=== PATIENT | male | born 1990 | race Caucasian/White ===

== ENCOUNTER 2020-01-21 18:32 | Emergency (ER) | payer SELFPAY ==
[2020-01-21 19:52] VITALS: BP 128/85; PULSE 65; RESP 17; TEMP 36.8; O2SAT 95; BMI 25.8
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
== END 2020-01-21 21:57 | disposition home or self-care (01) ==
PROVIDERS: Emergency Provider Nurse Practitioner Family
DX: S29.012A Strain of muscle and tendon of back wall of thorax, initial encounter (principal); V49.40XA Driver injured in collision with unspecified motor vehicles in traffic accident, initial encounter
CPT/HCPCS: 12345; 70450; 72072; 72100; 72125; 73030; 99281; 99283

== ENCOUNTER 2021-05-12 21:34 | Emergency (ER) | payer SELFPAY ==
[2021-05-12 21:57] VITALS: BP 140/91; PULSE 76; RESP 22; TEMP 36.2; O2SAT 100; BMI 27.1
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
[2021-05-12] MEDS: clindamycin 150 mg Capsule 300 MG PO (22:18)
[2021-05-12] MEDS: HYDROcodone-acetaminophen 7.5-325 mg Tablet 1 TAB PO (22:18)
[2021-05-12 22:44] VITALS: BP 138/82; PULSE 74; RESP 18; TEMP 36.1; O2SAT 100
== END 2021-05-12 22:45 | disposition home or self-care (01) ==
PROVIDERS: Emergency Provider Physician Assistant
DX: K02.9 Dental caries, unspecified (principal); F17.210 Nicotine dependence, cigarettes, uncomplicated
CPT/HCPCS: 99283

== ENCOUNTER 2022-07-14 23:45 | Emergency (ER) | payer SELFPAY ==
[2022-07-14 23:52] VITALS: PULSE 79; RESP 16; TEMP 36.8; O2SAT 99; BMI 25.1
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
[2022-07-15] MEDS: neomycin-poly-dex Op 5 mL Btl 2 DROP EYE-LEFT (00:38)
[2022-07-15] MEDS: tetracaine 0.5% Op Soln 4 mL Btl 1 DROP EYE-LEFT (00:45)
[2022-07-15] MEDS: fluorescein 1 mg Strip EYE-LEFT (00:45)
[2022-07-15 00:52] VITALS: BP 134/82; PULSE 66; RESP 16; O2SAT 98
--- NOTE | 2022-07-23 11:00 | DCPLANNER ---
manager heart called patient due to no primary care physician - no answer at this time - phone is not accepting calls at this time
== END 2022-07-15 00:57 | disposition home or self-care (01) ==
PROVIDERS: Emergency Provider Nurse Practitioner Family
DX: S05.02XA Injury of conjunctiva and corneal abrasion without foreign body, left eye, initial encounter (principal); F17.210 Nicotine dependence, cigarettes, uncomplicated; X58.XXXA Exposure to other specified factors, initial encounter
CPT/HCPCS: 99283

== ENCOUNTER → 2023-03-20 16:18 | Outpatient (BNVA) | payer SELFPAY | DX: R50.9 Fever, unspecified (principal); J02.9 Acute pharyngitis, unspecified; U07.1 COVID-19 | CPT/HCPCS: 87400; 87426; 87880 ==

== ENCOUNTER 2024-05-29 12:41 | Emergency (ER) | payer SELFPAY ==
[2024-05-29 13:28] VITALS: BP 120/72; PULSE 69; RESP 16; TEMP 36.6; O2SAT 100; BMI 25.8
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
--- NOTE | 2024-05-29 13:48 | XRR_ITS ---
PROCEDURE INFORMATION: Exam: XR Left Finger(s) Exam date and time: 05/29/2024 1:55 PM Age: 34 years old Clinical indication: Injury or trauma; Other: Finger cut; Laceration; Left; Index finger; Additional info: Wound TECHNIQUE: Imaging protocol: Radiologic exam of the left fingers. Views: Minimum 2 views. COMPARISON: No relevant prior studies available. FINDINGS: Bones/joints: Normal. Soft tissues: Focal soft tissue injury. Negative foreign body. XR/XR finger LT min 2V 88150 IMPRESSION: Negative for osseous injury.
[2024-05-29] MEDS: tetanus-dipt-pertussis 0.5 mL SDV IM (13:58)
== END 2024-05-29 15:09 | disposition home or self-care (01) ==
PROVIDERS: Emergency Provider Nurse Practitioner
DX: S61.301A Unspecified open wound of left index finger with damage to nail, initial encounter (principal); F17.210 Nicotine dependence, cigarettes, uncomplicated; W26.0XXA Contact with knife, initial encounter
CPT/HCPCS: 73140; 90471; 90715; 99283

== ENCOUNTER 2024-07-27 23:56 | Emergency (ER) | payer SELFPAY ==
[2024-07-28 00:12] VITALS: BP 132/85; PULSE 70; RESP 16; TEMP 37.6; O2SAT 97
[2024-07-28 02:09] VITALS: BP 122/80; PULSE 65; O2SAT 98
[2024-07-28] MEDS: amoxicillin-clav 875-125 mg Tablet 1 TAB PO (02:54)
[2024-07-28 02:58] VITALS: BP 113/78; PULSE 53; O2SAT 97
--- NOTE | 2024-07-28 02:58 | PC.NURSE ---
Wound irrigated and dressed per instruction of Dr Fuller.
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
== END 2024-07-28 03:00 | disposition home or self-care (01) ==
PROVIDERS: Emergency Provider Student in an Organized Health Care Education/Training Program
DX: S61.452A Open bite of left hand, initial encounter (principal); F17.210 Nicotine dependence, cigarettes, uncomplicated; W54.0XXA Bitten by dog, initial encounter
CPT/HCPCS: 99283; J9999